=== PATIENT | male | born 1985 | race African-American/Black ===

== ENCOUNTER 2017-09-19 14:05 | Emergency (ER) | payer MEDICAID ==
[~2017-09-19] VITALS: Ht 188 cm; Wt 89.0 kg
[~2017-09-19 14:05] MED LIST: POLY10O OU
[2017-09-19 14:27] VITALS: BP 141/92; PULSE 92; RESP 16; TEMP 98.6; O2SAT 100
[2017-09-19] MEDS ORDERED: SODIUM CHLOR 0.9% 1000 ML INJ 1,000 ML IV ONE (14:50)
--- NOTE | 2017-09-19 14:54 | PD ---
HPI Chief Complaint: Flank/Kidney Pain Time Seen by Provider: 14:40 Travel History International Travel<30 days: No Contact w/Intl Traveler<30days: No Traveled to known affect area: No History of Present Illness HPI 32-year-old male presents for evaluation of left flank pain. Symptoms started 2 days ago. He describes it as a dull pain that is somewhat constant but occasionally the pain becomes much worse and is sharp and radiates into the left lower abdomen. The pain seems to be somewhat worse with movement. He denies any injuries. She denies any nausea, vomiting, testicular or scrotal pain, fevers or chills. He denies any dysuria or hematuria but he feels like he is urinating less and he has a sensation that he cannot urinate as much as he would like to. He reports that he is taking the occasional Advil for treatment of this pain. He has no history of kidney stones. He has no other complaints. PFSH Past Medical History Diminished Hearing: No Influenza Vaccination: No ?: Not Social History Alcohol Use: Yes (3x/wk) Tobacco Use: Yes (1 ppd) Substance Use: No Allergies-Medications (Allergen,Severity, Reaction): Coded Allergies: acetaminophen (Unverified Allergy, Intermediate, HIVES, 09/19/17) propoxyphene (Unverified Allergy, Intermediate, HIVES, 09/19/17) Reported Meds & Prescriptions Reported Meds & Active Scripts Active Review of Systems Except as stated in HPI: all other systems reviewed are Neg Physical Exam Narrative GENERAL: Well-nourished male in no acute distress SKIN: Warm and dry. HEAD: Atraumatic. Normocephalic. EYES: Pupils equal and round. No scleral icterus. No injection or drainage. ENT: No nasal bleeding or discharge. Mucous membranes pink and moist. NECK: Trachea midline. No JVD. CARDIOVASCULAR: Regular rate and rhythm. No murmur appreciated. RESPIRATORY: No accessory muscle use. Clear to auscultation. Breath sounds equal bilaterally. GASTROINTESTINAL: Abdomen soft, non-tender, nondistended. Hepatic and splenic margins not palpable. Genital examination reveals no urethral discharge, nontender testicles, no inguinal hernia. MUSCULOSKELETAL: No obvious deformities. Mild tenderness to palpation left lower back/CVA. NEUROLOGICAL: Awake and alert. No obvious cranial nerve deficits. Motor grossly within normal limits. Normal speech. Data Data Last Documented VS Vital Signs Date Time Temp Pulse Resp B/P (MAP) Pulse Ox O2 Delivery O2 Flow Rate FiO2 09/19/17 14:27 98.6 92 16 141/92 (108) 100 Orders Orders Urinalysis - C+S If Indicated (09/19/17 14:26) Complete Blood Count With Diff (09/19/17 14:50) Comprehensive Metabolic Panel (09/19/17 14:50) Ct Abd/Pel W/O Iv Contrast (09/19/17 14:50) Ketorolac Inj (Toradol Inj) (09/19/17 15:00) Sodium Chlor 0.9% 1000 Ml Inj (Ns 1000 M (09/19/17 14:50) Ed Discharge Order (09/19/17 16:03) Labs Laboratory Tests Test 09/19/17 14:53 09/19/17 15:15 Urine Collection Type CLEAN CATCH Urine Color YELLOW Urine Turbidity CLEAR Urine pH 7.5 Urine Specific [place] 1.007 Urine Protein NEG mg/dL Urine Glucose (UA) NEG mg/dL Urine Ketones NEG mg/dL Urine Occult Blood NEG Urine Nitrite NEG Urine Bilirubin NEG Urine Leukocyte Esterase NEG Urine RBC 0-3 /hpf Urine Squamous Epithelial Cells 0-5 /hpf Microscopic Urinalysis Comment CULT NOT INDICATED Urine Collection Time 14:53 White Blood Count 8.0 TH/MM3 Red Blood Count 4.97 MIL/MM3 Hemoglobin 14.9 GM/DL Hematocrit 44.5 % Mean Corpuscular Volume 89.6 FL Mean Corpuscular Hemoglobin 30.0 PG Mean Corpuscular Hemoglobin Concent 33.5 % Red Cell Distribution Width 13.6 % Platelet Count 331 TH/MM3 Mean Platelet Volume 7.8 FL Neutrophils (%) (Auto) 67.9 % Lymphocytes (%) (Auto) 21.0 % Monocytes (%) (Auto) 8.4 % Eosinophils (%) (Auto) 1.0 % Basophils (%) (Auto) 1.7 % Neutrophils # (Auto) 5.4 TH/MM3 Lymphocytes # (Auto) 1.7 TH/MM3 Monocytes # (Auto) 0.7 TH/MM3 Eosinophils # (Auto) 0.1 TH/MM3 Basophils # (Auto) 0.1 TH/MM3 CBC Comment DIFF FINAL Differential Comment Blood Urea Nitrogen 5 MG/DL Creatinine 0.76 MG/DL Random Glucose 93 MG/DL Total Protein 8.3 GM/DL Albumin 4.3 GM/DL Calcium Level 9.1 MG/DL Alkaline Phosphatase 51 U/L Aspartate Amino Transf (AST/SGOT) 91 U/L Alanine Aminotransferase (ALT/SGPT) 114 U/L Total Bilirubin 0.7 MG/DL Sodium Level 137 MEQ/L Potassium Level 3.7 MEQ/L Chloride Level 102 MEQ/L Carbon Dioxide Level 28.4 MEQ/L Anion Gap 7 MEQ/L Estimat Glomerular Filtration Rate 144 ML/MIN MDM Medical Decision Making Medical Screen Exam Complete: Yes Emergency Medical Condition: Yes Medical Record Reviewed: Yes Differential Diagnosis Muscle spasm, muscle strain, testicular torsion, ureteral stone, renal colic Narrative Course 32-year-old male presents with left flank pain that occasionally radiates into the left lower abdomen for the past 2 days. Currently the pain is mild but he reports that sometimes the pain is excruciating and seems to be somewhat worse with movement. He does report decreased urination. Certainly his symptoms could be caused by a ureteral stone. CT of the abdomen and pelvis has been ordered to assess. He'll be given Toradol and IV fluids. The patient's lab work imaging studies to been reviewed. Essentially unremarkable except for mildly elevated liver enzymes. He has no history of liver disease. He is encouraged to follow-up with his primary care physician for outpatient repeat liver enzyme testing. He is stable for discharge. Diagnosis Primary Impression: Left flank pain Additional Impression: Elevated liver enzymes Additional Instructions: Take Tylenol or Motrin for pain. As discussed, your liver enzymes were mildly elevated(AST 91 ALT 114) liver enzyme testing should be repeated in 2 weeks by primary care physician. Return for any emergent medical conditions. Med/Other Pt SpecificInfo: No Change to Meds Disposition: 01 DISCHARGE HOME Condition: Stable Jean Montano Sep 19, 2017 14:54
[2017-09-19 14:57] LABS: BLOOD, URINE NEG (NEG); GLUCOSE,URINE NEG (NEG); KETONE, URINE NEG (NEG); NITRITE,URINE NEG (NEG); PH, URINE 7.5 (5.0-8.5)
[2017-09-19] MEDS ORDERED: KETOROLAC TROMETHAMINE 30 MG/ML (IVP) VIAL IV PUSH ONE (15:00)
[2017-09-19 15:10] LABS: METHOD OF COLLECTION CLEAN CATCH; URINE COLOR YELLOW (YELLW/STRAW)
[2017-09-19 15:11] LABS: COMMENT (UR) CULT NOT INDICATED; CULTURE IF INDICATED CULT NOT INDICATED; RBC, URINE 0-3 /hpf (0-3); SQUAMOUS EPITHELIAL CELL URINE 0-5 /hpf (0-5)
[2017-09-19 15:23] LABS: AUTOMATED NEUTROPHIL # 5.4 TH/MM3 (1.8-7.7); BASOPHIL # 0.1 TH/MM3 (0-0.2); BASOPHIL % 1.7 % (0.0-2.0); EOSINOPHIL # 0.1 TH/MM3 (0-0.4); HEMATOCRIT 44.5 % (39.0-51.0); HEMO FLAGS DIFF FINAL; LYMPHOCYTE # 1.7 TH/MM3 (1.0-4.8); MEAN CELL VOLUME 89.6 FL (80.0-100.0); MEAN CORPUSCULAR HGB CONC 33.5 % (32.0-36.0); MONO % 8.4 % (0.0-8.0); NEUT % 67.9 % (16.0-70.0); PLATELET COUNT 331 TH/MM3 (150-450); RED BLOOD COUNT 4.97 MIL/MM3 (4.50-5.90); RED CELL DISTRIBUTION WIDTH 13.6 % (11.6-17.2)
[2017-09-19 15:50] LABS: CHLORIDE 102 MEQ/L (98-107); POTASSIUM 3.7 MEQ/L (3.5-5.1); SODIUM (NA) 137 MEQ/L (136-145)
--- NOTE | 2017-09-19 15:53 | RADRPT ---
EXAM DATE/TIME: 09/19/2017 15:29 [facility] COMPARISON: CT ABDOMEN & PELVIS W/O CONTRAST, February 25, 2014, 20:37. INDICATIONS : Left flank pain. ORAL CONTRAST: No oral contrast ingested. RADIATION DOSE: 12.28 CTDIvol (mGy) MEDICAL HISTORY : None SURGICAL HISTORY : None. ENCOUNTER: Initial ACUITY: 1 day PAIN SCALE: 4/10 LOCATION: Left flank TECHNIQUE: Volumetric scanning of the abdomen and pelvis was performed. Using automated exposure control and ad justment of the mA and/or kV according to patient size, radiation dose was kept as low as reasonably achievable to obtain optimal diagnostic quality images. DICOM format image data is available electro nically for review and comparison. FINDINGS: LOWER LUNGS: The visualized lower lungs are clear. LIVER: Homogeneous density without lesion. There is no dilation of the biliary tree. No calcified gallston es. SPLEEN: Normal size without lesion. PANCREAS: Within normal limits. KIDNEYS: Normal in size and shape. There is no mass, stone, or hydronephrosis. ADRENAL GLANDS: Within normal limits. VASCULAR: There is no aortic aneurysm. BOWEL/MESENTERY: The stomach, small bowel, and colon demonstrate no acute abnormality. There is no free intraperitone al air or fluid. Normal appendix. ABDOMINAL WALL: Within normal limits. RETROPERITONEUM: There is no lymphadenopathy. BLADDER: No wall thickening or mass. REPRODUCTIVE: Within normal limits. INGUINAL: There is no lymphadenopathy or hernia. MUSCULOSKELETAL: Subchondral cysts of both femoral heads. CONCLUSION: 1. No acute inflammatory process. 2. No renal calculi or hydronephrosis. Shalom Ashby MD on September 19, 2017 at 15:43 Board Certified Radiologist. This report was verified electronically.
[2017-09-19 15:54] LABS: ANION GAP 7 MEQ/L (5-15); BICARBONATE 28.4 MEQ/L (21.0-32.0); BLOOD UREA NITROGEN 5 MG/DL (7-18)
[2017-09-19 15:57] LABS: ALT (GPT) 114 U/L (12-78); AST (GOT) 91 U/L (15-37); GLOMERULAR FILTRATION RATE 144 ML/MIN (>89)
[2017-09-19 15:58] LABS: TOTAL BILIRUBIN ADULT 0.7 MG/DL (0.2-1.0)
[2017-09-19 16:00] LABS: ALKALINE PHOSPHATASE 51 U/L (45-117)
[2017-09-19 16:07] VITALS: RESP 14
[2017-09-19 16:35] VITALS: BP 135/88
== END 2017-09-19 16:35 | disposition home or self-care (01) ==
LOC: PHED 14:05
DX: R10.9 Unspecified abdominal pain (principal); R74.8 Abnormal levels of other serum enzymes; F17.200 Nicotine dependence, unspecified, uncomplicated
CPT/HCPCS: 74176; 80053; 81001; 85025; 96361; 96374; 99285; J1885; J7030

== ENCOUNTER 2017-11-06 13:53 | Emergency (ER) | payer MEDICAID ==
--- NOTE | 2017-11-06 14:50 | PD ---
HPI Chief Complaint: Musculoskeletal Complaint Time Seen by Provider: 14:29 Travel History International Travel<30 days: No Contact w/Intl Traveler<30days: No Traveled to known affect area: No History of Present Illness HPI 32-year-old male presents to emergency department with left ankle pain after he stepped down off of a curb last night. Patient states that he stepped off the curb and describes an inversion injury to his ankle. Patient was able to walk all however, today he is pain is increased and is concerned about his ankle. States his pain is moderate and increases with weight bearing and decreases with rest. Patient denies numbness or tingling. He has not taken anything for this pain. Denies chronic medical issues or chronic medication use. PFSH Past Medical History Diminished Hearing: No Social History Alcohol Use: Yes (3x/wk) Tobacco Use: Yes (1 ppd) Substance Use: No Allergies-Medications (Allergen,Severity, Reaction): Coded Allergies: acetaminophen (Unverified Allergy, Intermediate, HIVES, 09/19/17) propoxyphene (Unverified Allergy, Intermediate, HIVES, 09/19/17) Reported Meds & Prescriptions Reported Meds & Active Scripts Active Review of Systems Except as stated in HPI: all other systems reviewed are Neg Physical Exam Narrative GENERAL: Well-nourished, well-developed patient. SKIN: Focused skin assessment warm/dry. HEAD: Normocephalic. EYES: No scleral icterus. No injection or drainage. NECK: Supple, trachea midline. No JVD or lymphadenopathy. CARDIOVASCULAR: Regular rate and rhythm without murmurs, gallops, or rubs. RESPIRATORY: Breath sounds equal bilaterally. No accessory muscle use. MUSCULOSKELETAL: No cyanosis, or edema. Left ankle- limited range of motion secondary to pain. No crepitus or deformities noted. Mild edema to the lateral aspect of the ankle. There is palpation of the anterior talo fibular ligament. Neurovascularly intact BACK: Nontender without obvious deformity. No CVA tenderness. Data Data Orders Orders Ankle, Complete ([id number]) (11/06/17 ) Ibuprofen (Motrin) (11/06/17 15:00) Crutches (11/06/17 14:50) Splint Or Brace Apply/Monitor (11/06/17 14:50) Ed Discharge Order (12/20/17 15:10) [facility] Medical Decision Making Medical Screen Exam Complete: Yes Emergency Medical Condition: Yes Differential Diagnosis Left ankle sprain, strain, fracture Narrative Course 32-year-old male presents to emergency department with left ankle pain after he stepped down off of a curb last night. Patient states that he stepped off the curb and describes an inversion injury to his ankle. Patient was able to walk all however, today he is pain is increased and is concerned about his ankle. States his pain is moderate and increases with weight bearing and decreases with rest. Patient denies numbness or tingling. He has not taken anything for this pain. Denies chronic medical issues or chronic medication use. Vital signs stable Physical exam consistent with ankle sprain versus fracture. Limited range of motion secondary to pain. Neurovascularly intact Ibuprofen 800 mg administered in the emergency department. Patient states he has an allergy to Darvocet. Stirrup splint and crutches given in the emergency department. X-rays left ankle without acute process. Advised patient of care for the ankle. Advised patient to follow up with his primary care physician within 2-3 days. Return to the emergency department for worsening or persistent symptoms. Diagnosis Primary Impression: Ankle sprain Qualified Codes: S93.492A - Sprain of other ligament of left ankle, initial encounter Referrals: [facility] Patient Instructions: Ankle Sprain (ED), General Instructions Additional Instructions: Use ice or heat for symptom relief. Elevate the joint above the heart to reduce swelling. You may use compression with Pedro Luis wrap or similar to reduce swelling. If symptoms persist or worsen, return to the emergency department. Follow up with your primary care physician within 2 days. It is normal for an ankle injury to be tender or painful for 7-14 days. Disposition: 01 DISCHARGE HOME Condition: Stable Juju Pizarro Nov 06, 2017 14:50
[2017-11-06] MEDS ORDERED: IBUPROFEN 800 MG TAB PO ONE (15:00)
--- NOTE | 2017-11-06 15:09 | RADRPT ---
EXAM DATE/TIME: 11/06/2017 14:35 [facility] COMPARISON: No previous studies available for comparison. INDICATIONS : Rolled ankle last night. Pain and swelling lateral side. MEDICAL HISTORY : None. SURGICAL HISTORY : None. ENCOUNTER: Initial ACUITY: 1 day PAIN SCORE: 8/10 LOCATION: Left Ankle FINDINGS: Three view exam was performed of the left ankle. The bony structures are in normal alignment. No ev idence of fracture, dislocation, or soft tissue swelling. The ankle mortise is intact. No radiopaqu e foreign bodies are seen. Bony mineralization is normal. CONCLUSION: 1. No acute fracture or dislocation. Goldy Dodge MD on November 06, 2017 at 15:05 Board Certified Radiologist. This report was verified electronically.
== END 2017-11-06 15:37 | disposition home or self-care (01) ==
LOC: NEPK 13:53
DX: S93.492A Sprain of other ligament of left ankle, initial encounter (principal); F17.200 Nicotine dependence, unspecified, uncomplicated; W10.1XXA Fall (on)(from) sidewalk curb, initial encounter; X50.1XXA Overexertion from prolonged static or awkward postures, initial encounter; Z88.6 Allergy status to analgesic agent; Z88.8 Allergy status to other drugs, medicaments and biological substances
CPT/HCPCS: 73610; 99283; E0113; L1906

== ENCOUNTER 2017-11-15 13:39 | Emergency (ER) | payer MEDICAID ==
[~2017-11-15] VITALS: Ht 188 cm; Wt 90.0 kg
[2017-11-15 13:40] VITALS: BP 148/71; PULSE 87; RESP 16; TEMP 98.1; O2SAT 99
--- NOTE | 2017-11-15 13:56 | PD ---
HPI Chief Complaint: Flank/Kidney Pain Time Seen by Provider: 13:44 Travel History International Travel<30 days: No Contact w/Intl Traveler<30days: No Traveled to known affect area: No History of Present Illness HPI This 32-year-old male is complaining of some crampy abdominal pain. This started about 2 days ago. The pain is intermittent. When it comes on it lasts for about an hour. It seems to have more often when he is active. He has not noted at night. There is been no vomiting or diarrhea. Has not been any fever or chills. The pain seems greater on the left mid abdominal area. There has not been any dysuria. He was seen here about a month ago with left flank pain and at that time had negative urine as well as CT scan which did not show any obstructive uropathy. PFSH Past Medical History Diminished Hearing: No Musculoskeletal: Yes (chronic back pain) Influenza Vaccination: No Social History Alcohol Use: Yes (3x/wk) Tobacco Use: Yes (1 ppd) Substance Use: No Allergies-Medications (Allergen,Severity, Reaction): Coded Allergies: acetaminophen (Unverified Allergy, Intermediate, HIVES, 11/15/17) propoxyphene (Unverified Allergy, Intermediate, HIVES, 11/15/17) Reported Meds & Prescriptions Reported Meds & Active Scripts Active No Active Prescriptions or Reported Medications Review of Systems General / Constitutional: No: Fever, Chills Eyes: No: Diploplia, Blurred Vision HENT: No: Headaches Cardiovascular: No: Chest Pain or Discomfort, Palpitations Respiratory: No: Cough, Shortness of Breath Gastrointestinal: Positive: Abdominal Pain, No: Vomiting, Diarrhea, Hematochezia Genitourinary: No: Urgency, Frequency Musculoskeletal: No: Myalgias, Arthralgias Skin: No Rash Endocrine: No: Heat Intolerance, Cold Intolerance Hematologic/Lymphatic: No: Easy Bruising Physical Exam Narrative GENERAL: Well-developed male SKIN: Focused skin assessment warm/dry. HEAD: Atraumatic. Normocephalic. EYES: Pupils equal and round. No scleral icterus. No injection or drainage. ENT: No nasal bleeding or discharge. Mucous membranes pink and moist. NECK: Trachea midline. No JVD. CARDIOVASCULAR: Regular rate and rhythm. No murmur appreciated. RESPIRATORY: No accessory muscle use. Clear to auscultation. Breath sounds equal bilaterally. GASTROINTESTINAL: Abdomen soft, non-tender, nondistended. Hepatic and splenic margins not palpable. Palpation does not appear to aggravate the pain. MUSCULOSKELETAL: No obvious deformities. No clubbing. No cyanosis. No edema. NEUROLOGICAL: Awake and alert. No obvious cranial nerve deficits. Motor grossly within normal limits. Normal speech. PSYCHIATRIC: Appropriate mood and affect; insight and judgment normal. Data Data Last Documented VS Vital Signs Date Time Temp Pulse Resp B/P (MAP) Pulse Ox O2 Delivery O2 Flow Rate FiO2 11/15/17 13:40 98.1 87 16 148/71 (96) 99 Orders Orders Complete Blood Count With Diff (11/15/17 13:53) Comprehensive Metabolic Panel (11/15/17 13:53) Lipase (11/15/17 13:53) Urinalysis - C+S If Indicated (11/15/17 13:53) Dicyclomine (Bentyl) (11/15/17 14:00) Labs Laboratory Tests Test 11/15/17 14:00 White Blood Count 11.4 TH/MM3 Red Blood Count 5.20 MIL/MM3 Hemoglobin 16.0 GM/DL Hematocrit 46.9 % Mean Corpuscular Volume 90.2 FL Mean Corpuscular Hemoglobin 30.9 PG Mean Corpuscular Hemoglobin Concent 34.2 % Red Cell Distribution Width 13.6 % Platelet Count 300 TH/MM3 Mean Platelet Volume 7.6 FL Neutrophils (%) (Auto) 68.4 % Lymphocytes (%) (Auto) 18.3 % Monocytes (%) (Auto) 8.1 % Eosinophils (%) (Auto) 0.8 % Basophils (%) (Auto) 4.4 % Neutrophils # (Auto) 7.8 TH/MM3 Lymphocytes # (Auto) 2.1 TH/MM3 Monocytes # (Auto) 0.9 TH/MM3 Eosinophils # (Auto) 0.1 TH/MM3 Basophils # (Auto) 0.5 TH/MM3 CBC Comment DIFF FINAL Differential Comment Urine Collection Type CLEAN CATCH Urine Color STRAW Urine Turbidity CLEAR Urine pH 6.0 Urine Specific [place] 1.004 Urine Protein NEG mg/dL Urine Glucose (UA) NEG mg/dL Urine Ketones NEG mg/dL Urine Occult Blood NEG Urine Nitrite NEG Urine Bilirubin NEG Urine Leukocyte Esterase NEG Microscopic Urinalysis Comment CULT NOT INDICATED Blood Urea Nitrogen 8 MG/DL Creatinine 0.83 MG/DL Random Glucose 87 MG/DL Total Protein 8.7 GM/DL Albumin 4.0 GM/DL Calcium Level 9.4 MG/DL Alkaline Phosphatase 59 U/L Aspartate Amino Transf (AST/SGOT) 23 U/L Alanine Aminotransferase (ALT/SGPT) 23 U/L Total Bilirubin 0.3 MG/DL Sodium Level 136 MEQ/L Potassium Level 3.8 MEQ/L Chloride Level 102 MEQ/L Carbon Dioxide Level 27.8 MEQ/L Anion Gap 6 MEQ/L Estimat Glomerular Filtration Rate 130 ML/MIN Lipase 224 U/L MDM Medical Decision Making Medical Screen Exam Complete: Yes Emergency Medical Condition: Yes Medical Record Reviewed: Yes Differential Diagnosis Differential includes nonspecific abdominal pain, irritable bowel syndrome, enteritis, Narrative Course Urinalysis is negative. Liver function tests are normal. Hemoglobin is stable. White count 11,000 with a normal differential. Reevaluation patient reports his pain is not going on at this time. I will give a trial of Bentyl. I don't think repeat imaging is warranted at this time impression nonspecific abdominal pain, possible IBS. If his symptoms persist she should follow-up with gastroenterology Diagnosis Primary Impression: Nonspecific abdominal pain Scripts Dicyclomine (Dicyclomine) 20 Mg Tab 20 MG PO TID for Bowel Management, #30 TAB 0 Refills Prov: Ryder Matos MD 11/15/17 Disposition: 01 DISCHARGE HOME Condition: Stable Ryder Matos MD Nov 15, 2017 13:56
[2017-11-15] MEDS ORDERED: DICYCLOMINE HCL 10 MG CAP PO ONE (14:00)
[2017-11-15 14:08] LABS: AUTOMATED NEUTROPHIL # 7.8 TH/MM3 (1.8-7.7); BASOPHIL # 0.5 TH/MM3 (0-0.2); BASOPHIL % 4.4 % (0.0-2.0); EOSINOPHIL # 0.1 TH/MM3 (0-0.4); EOSINOPHIL % 0.8 % (0.0-4.0); HEMATOCRIT 46.9 % (39.0-51.0); LYMPH % 18.3 % (9.0-44.0); LYMPHOCYTE # 2.1 TH/MM3 (1.0-4.8); MEAN CELL VOLUME 90.2 FL (80.0-100.0); MEAN CORPUSCULAR HEMOGLOBIN 30.9 PG (27.0-34.0); MEAN CORPUSCULAR HGB CONC 34.2 % (32.0-36.0); MEAN PLATELET VOLUME 7.6 FL (7.0-11.0); MONO % 8.1 % (0.0-8.0); MONOCYTE # 0.9 TH/MM3 (0-0.9); NEUT % 68.4 % (16.0-70.0); PLATELET COUNT 300 TH/MM3 (150-450); RED CELL DISTRIBUTION WIDTH 13.6 % (11.6-17.2); WHITE BLOOD COUNT 11.4 TH/MM3 (4.0-11.0)
[2017-11-15 14:11] LABS: BILIRUBIN, URINE NEG (NEG); BLOOD, URINE NEG (NEG); GLUCOSE,URINE NEG (NEG); KETONE, URINE NEG (NEG); NITRITE,URINE NEG (NEG); URINE LEUKOCYTE ESTERASE NEG (NEG)
[2017-11-15 14:17] LABS: URINE COLOR STRAW (YELLW/STRAW)
[2017-11-15 14:18] LABS: CHLORIDE 102 MEQ/L (98-107); SODIUM (NA) 136 MEQ/L (136-145)
[2017-11-15 14:22] LABS: BICARBONATE 27.8 MEQ/L (21.0-32.0); BLOOD UREA NITROGEN 8 MG/DL (7-18); CALCIUM 9.4 MG/DL (8.5-10.1); GLUCOSE,RANDOM 87 MG/DL (74-106); LIPASE 224 U/L (73-393)
[2017-11-15 14:25] LABS: ALT (GPT) 23 U/L (12-78); AST (GOT) 23 U/L (15-37); CREATININE 0.83 MG/DL (0.60-1.30); GLOMERULAR FILTRATION RATE 130 ML/MIN (>89)
[2017-11-15 14:26] LABS: TOTAL BILIRUBIN ADULT 0.3 MG/DL (0.2-1.0); TOTAL PROTEIN 8.7 GM/DL (6.4-8.2)
[2017-11-15 14:28] LABS: ALKALINE PHOSPHATASE 59 U/L (45-117)
[2017-11-15] MEDS ORDERED: DICY20TA10 PO (15:04)
[2017-11-15 15:15] VITALS: BP 135/79
== END 2017-11-15 15:19 | disposition home or self-care (01) ==
LOC: PHED 13:39
DX: R10.9 Unspecified abdominal pain (principal); F17.200 Nicotine dependence, unspecified, uncomplicated
CPT/HCPCS: 80053; 81001; 83690; 85025; 99283

== ENCOUNTER 2018-02-26 04:05 | Emergency (ER) | payer OTHER, MEDICAID ==
[~2018-02-26] VITALS: Ht 182.9 cm; Wt 80.0 kg
[~2018-02-26 04:05] MED LIST changes: +DICY20TA10 PO; -POLY10O OU
[2018-02-26 04:14] VITALS: BP 150/89; PULSE 114; RESP 16; TEMP 98.1; O2SAT 98
[2018-02-26] MEDS ORDERED: SODIUM CHLOR 0.9% 1000 ML INJ 1,000 ML IV SCH (04:23)
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
[2018-02-26] MEDS ORDERED: SODIUM CHLORIDE 0.9% FLUSH 10 ML FLUSH IVF PRN (04:30)
[2018-02-26] MEDS ORDERED: ONDANSETRON HCL 4 MG/2 ML VIAL IV PUSH ONE (04:30)
[2018-02-26] MEDS ORDERED: ceFAZolin 2 GM PREMIX 50 ML IV ONE (04:30)
[2018-02-26] MEDS ORDERED: MORPHINE SULFATE 4 MG/ML INJ IV PUSH ONE (04:30)
[2018-02-26 04:47] LABS: AUTOMATED NEUTROPHIL # 7.9 TH/MM3 (1.8-7.7); BASOPHIL # 0.1 TH/MM3 (0-0.2); EOSINOPHIL # 0.1 TH/MM3 (0-0.4); EOSINOPHIL % 0.9 % (0.0-4.0); HEMATOCRIT 47.6 % (39.0-51.0); LYMPH % 29.6 % (9.0-44.0); LYMPHOCYTE # 3.8 TH/MM3 (1.0-4.8); MEAN CELL VOLUME 91.2 FL (80.0-100.0); MEAN CORPUSCULAR HEMOGLOBIN 30.7 PG (27.0-34.0); MEAN CORPUSCULAR HGB CONC 33.6 % (32.0-36.0); MEAN PLATELET VOLUME 7.8 FL (7.0-11.0); MONO % 7.4 % (0.0-8.0); MONOCYTE # 0.9 TH/MM3 (0-0.9); NEUT % 61.1 % (16.0-70.0); PLATELET COUNT 334 TH/MM3 (150-450); RED BLOOD COUNT 5.21 MIL/MM3 (4.50-5.90); RED CELL DISTRIBUTION WIDTH 13.9 % (11.6-17.2); WHITE BLOOD COUNT 12.9 TH/MM3 (4.0-11.0)
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
[2018-02-26] MEDS ORDERED: IOHEXOL 350 MG/ML 10 ML VIAL (for RAD DIAG) IVCONTRAST ONE (05:23)
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
[2018-02-26] MEDS ORDERED: KETOROLAC TROMETHAMINE 30 MG/ML (IVP) VIAL IV PUSH ONE (05:45)
[2018-02-26] MEDS ORDERED: SODIUM CHLOR 0.9% 1000 ML INJ 1,000 ML IV ONE (06:00)
[2018-02-26] MEDS ORDERED: PROPARACAINE HCL 0.5% OPHT SOLN 15 ML BTL RIGHT EYE ONE (06:00)
[2018-02-26] MEDS ORDERED: MORPHINE SULFATE 2 MG/ML SYRINGE IV PUSH ONE (06:00)
[2018-02-26] MEDS ORDERED: IBUP1TAB7 PO (07:07)
[2018-02-26] MEDS ORDERED: ROBA750T PO (07:07)
[2018-02-26 07:26] VITALS: BP 147/99; PULSE 91; RESP 14; O2SAT 99
[2018-02-26 07:30] VITALS: RESP 18
[2018-02-26 07:58] LABS: BILIRUBIN, URINE NEG (NEG); BLOOD, URINE SMALL (NEG); GLUCOSE,URINE NEG (NEG); KETONE, URINE NEG (NEG); MUCUS URINE FEW /lpf (OCC); NITRITE,URINE NEG (NEG); URINE COLOR LIGHT-YELLOW (YELLW/STRAW); URINE LEUKOCYTE ESTERASE NEG (NEG)
--- NOTE | 2018-02-26 21:11 | EKG ---
Date Performed: 02/26/2018 Time Performed: 06:14:45 PTAGE: 33 years EKG: Sinus rhythm ABNORMAL RHYTHM ECG PREVIOUS TRACING : 02/26/2018 06.13 Since the previous tracing, no significant change noted DOCTOR: Sree Yuan Interpretating Date/Time 02/26/2018 21:11:39
== END 2018-02-26 08:50 | disposition home or self-care (01) ==
LOC: NEPC 04:05
DX: S09.90XA Unspecified injury of head, initial encounter (principal); F10.129 Alcohol abuse with intoxication, unspecified; S00.81XA Abrasion of other part of head, initial encounter; S40.819A Abrasion of unspecified upper arm, initial encounter; J32.0 Chronic maxillary sinusitis; R94.31 Abnormal electrocardiogram [ECG] [EKG]; F17.200 Nicotine dependence, unspecified, uncomplicated; V47.5XXA Car driver injured in collision with fixed or stationary object in traffic accident, initial encounter
CPT/HCPCS: 70450; 70486; 71045; 71260; 72125; 74177; 80048; 80307; 81001; 84484; 85025; 85610; 85730; 86850; 86900; 86901; 93005; 96361; 96365; 96375; 96376; 99285; J0690; J1885; J2270; J2405; J7030; Q9967